=== PATIENT | male | born 1965 | race African-American/Black ===

== ENCOUNTER 2025-03-22 08:11 | Emergency (ER) | payer MEDICARE, MEDICAID ==
[~2025-03-22] VITALS: Ht 165.1 cm; Wt 100.0 kg
[2025-03-22 08:22] VITALS: O2SAT 94
[2025-03-22 09:11] LABS: BASOPHILS % 0.9 % (0.0-2.0); EOSINOPHILS % 3.8 % (0.0-5.0); HEMATOCRIT. 41.9 % (42.0-52.0); HEMOGLOBIN. 13.9 g/dL (14.0-18.0); LYMPHOCYTES % 36.5 % (20.0-50.0); MEAN CORPUSCULAR HEMOGLOBIN 30.9 pg (28.0-32.0); MEAN CORPUSCULAR HGB CONC 33.1 g/dL (31.0-37.0); MEAN CORPUSCULAR VOLUME 93.4 fL (80.0-94.0); MEAN PLATELET VOLUME 8.2 fl (7.4-10.4); NEUTROPHILS % 49.8 % (40.0-76.0); PLATELET 251 x1000/uL (130-400); RED BLOOD CELL COUNT 4.49 mill/uL (4.7-6.1); WHITE BLOOD COUNT 8.5 x1000/uL (4.5-11.0)
[2025-03-22 09:24] LABS: CHLORIDE 106 mEq/L (98-107); POTASSIUM 3.9 mEq/L (3.5-5.1); SODIUM 137 mEq/L (136-145)
[2025-03-22] MEDS: FUROSEMIDE 40MG/4ML VIAL IVP ONE (09:24)
[2025-03-22 09:25] LABS: CALCIUM 9.1 mg/dL (8.7-10.4); CARBON DIOXIDE 25 mEq/L (21-32)
[2025-03-22 09:30] LABS: CREATININE 1.3 mg/dL (0.6-1.3); GLUCOSE 128 mg/dL (70-105); UREA NITROGEN BLOOD 12 mg/dL (9-23)
[2025-03-22 09:31] LABS: TROPONIN I HIGH SENSITIVITY 25 ng/L (3.0-53)
[2025-03-22 12:47] LABS: ALANINE AMINOTRANSFERASE 30 IU/L (10-49); ALBUMIN 4.3 g/dL (3.2-4.8); ASPARTATE AMINOTRANSFERASE 32 IU/L (<34); BILIRUBIN DIRECT 0.1 mg/dL (<=3.0); BILIRUBIN TOTAL 0.4 mg/dL (0.1-1.0); PROTEIN TOTAL 7.2 g/dL (6.0-8.3)
[2025-03-22] MEDS ORDERED: FURO-152 MT (13:00)
[2025-03-22 13:15] VITALS: BP 116/88; PULSE 83; RESP 24; TEMP 36.9; O2SAT 95
[2025-03-22] MEDS: IOHEXOL-350 100 ML BOTTLE ONE (13:33)
== END 2025-03-22 13:37 | disposition home or self-care (01) ==
LOC: ER 08:34 → CANBEDREQ 12:14 → ER 13:37
DX: I27.21 Secondary pulmonary arterial hypertension (principal); I50.810 Right heart failure, unspecified; Z88.0 Allergy status to penicillin; Z98.890 Other specified postprocedural states
CPT/HCPCS: 80076; 80048; 83880; 85025; 85379; 84484; 36415; 71045; 71275; 93005; 96374; 99285; Q9967; J1940